=== PATIENT | male | born 1965 | race Caucasian/White ===

== ENCOUNTER 2017-01-22 06:19 | Day surgery (SDC) | payer BC ==
[2017-01-21 12:41] VITALS: BMI 34.7
--- NOTE | 2017-01-22 05:43 | HP ---
DATE OF ADMISSION: 01/22/2017 HISTORY OF PRESENT ILLNESS: This is a 52-year-old male with family history of colon cance r and also history of colon polyp. The patient had a very large, broad-based sessile villous adenom a removed one year ago. Because of broad-based sessile villous adenoma, he was advised to have repe at colonoscopy. The patient is having abdominal pain off and on with nausea. The pain is mild to m oderate over the epigastric area and right upper quadrant. The patient had an abdominal sonogram wh ich came back negative for any pathology. The patient comes for an EGD because of abdominal pain an d nausea and for a colonoscopy because of history of colon polyp. MEDICAL ILLNESSES: 1. Migraine. 2. Anxiety. 3. History of colon polyp. 4. Depression. 5. History of alcohol in moderate amount. ALLERGIES: None. PHYSICAL EXAMINATION: VITAL SIGNS: Pulse is 70, blood pressure 130/70. HEENT: Conjunctivae clear. CARDIOVASCULAR SYSTEM: First and second heart sounds normal. LUNGS: Clear to auscultation. ABDOMEN: Soft to touch. Abdomen is tender over the epigastric area and also right upper quadrant. There is no rebound or guarding. No masses. ADMITTING DIAGNOSES: 1. Abdominal pain and nausea. 2. Colon polyp. PLAN: EGD and colonoscopy.
[2017-01-22] MEDS ORDERED: Propofol 200 MG/20 ML VIAL ONE (08:20)
[2017-01-22] MEDS ORDERED: Lidocaine 1% PF 5 ML VIAL ONE (08:20)
--- NOTE | 2017-01-23 00:30 | OP ---
DATE OF PROCEDURE: 01/22/2017 OPERATIVE PROCEDURE: Esophagogastroduodenoscopy with biopsy. PREOPERATIVE DIAGNOSES: Abdominal pain and nausea. POSTOPERATIVE DIAGNOSES: 1. Esophagitis, distal esophagus and ulceration at the gastroesophageal junction with polypoid-appe aring mucosa. 2. A small gastric ulcer with erosions. PROCEDURE IN DETAIL: The patient was placed on his left lateral position and was given sedation by Anesthesia Department. A Pentax video gastroscope under direct vision was passed down the oropharyn x, past the gastroesophageal junction, into the stomach and subsequently into the descending duodenu m. The upper two-thirds of the esophageal mucosa appeared normal. Over the distal esophagus, the p atient had esophagitis and also at the GE junction, there is a polypoid-appearing mucosa with ulcera tion. It was biopsied. The fundus, cardia, and gastric body, no pathology seen. The gastric antru m shows an ulceration with some erosions. Biopsies were obtained from the gastric antrum and gastri c body. The duodenal bulb, descending duodenum, no pathology was seen. The stomach was decompresse d and the scope removed. DISCHARGE PLANNING: This is a 52-year-old male who came in for an EGD and a colonoscopy. He underwent EGD with biopsy. Colonoscopy, polypectomy x2. The patient did well post procedure an d is being discharged home. DISCHARGE INSTRUCTIONS: 1. Omeprazole 40 mg once a day. 2. The patient was advised to call me if he develops abdominal pain or hematochezia. 3. To come back to the clinic in 2 weeks.
--- NOTE | 2017-01-23 06:45 | OP ---
DATE OF SURGERY: 01/22/2017 OPERATIVE PROCEDURES: Colonoscopy with polypectomy, biopsy. PREOPERATIVE DIAGNOSES: A 52-year-old male with family history of colon cancer and person al history of colon polyps. The patient had a colonoscopy with polypectomy in 2016 and had removed 2 large broad-based sessile . He was brought back for repeat colonoscopy today because of thi s. POSTOPERATIVE DIAGNOSES: 1. Occasional diverticula over the ascending colon towards the cecal area. 2. Sessile transverse colon polyp, biopsied. 3. Sessile sigmoid polyps x2, status post polypectomy. 4. Small hemorrhoids. PROCEDURE NOTE: The patient was placed on his left lateral position and [facility] A rectal exam was done before the scope was advanced into the rectum. No lesions were felt on rectal exam. A Pentax video colonoscope was introduced into the rectum and advanced a ll the way into the cecum. The patient had a small amount of retained stool which was washed out. The appendiceal orifice, ileocecal valve, cecum, no pathology seen. There was an occasional diverti cula seen over the ascending colon area. The hepatic flexure, no pathology seen. The proximal tavarez sverse colon, no pathology seen. Over the distal transverse colon, the patient was found to have a sessile polyp. The polyp is very flat and probably measured approximately about 1.5 cm. The polyp was biopsied and removed as much as possible. The splenic flexure, descending colon, no pathology s een. The sigmoid colon had 2 sessile polyps. Both removed with cautery with good hemostasis. Retr oflexion of the scope in the rectum revealed hemorrhoids.
== END 2017-01-22 10:23 | disposition home or self-care (01) ==
LOC: SDC 06:19
PROVIDERS: ATTEND Internal Medicine Gastroenterology
DX: D12.3 Benign neoplasm of transverse colon (principal); D12.5 Benign neoplasm of sigmoid colon; K21.0 Gastro-esophageal reflux disease with esophagitis; K29.50 Unspecified chronic gastritis without bleeding; K57.30 Diverticulosis of large intestine without perforation or abscess without bleeding; G43.909 Migraine, unspecified, not intractable, without status migrainosus; F41.9 Anxiety disorder, unspecified; F32.9 Major depressive disorder, single episode, unspecified; Z86.010 Personal history of colon polyps; Z80.0 Family history of malignant neoplasm of digestive organs
CPT/HCPCS: 88305; 88312; 88313; J2001; J2704

== ENCOUNTER 2017-02-03 08:33 | Outpatient (CLI) | payer BC ==
[2017-02-03] MEDS ORDERED: Iopamidol 370 76% 100 ML VIAL ONE ×2 (09:00)
--- NOTE | 2017-02-03 11:39 | CT ---
CT ABDOMEN WITH AND WITHOUT CONTRAST: HISTORY: Ultrasound exam of 01/20/2017 revealed an abnormal prominence off the superior pole of the left kidn ey. A mass lesion was questioned. This exam is performed and was recommended from that study. Gaurang t study was reviewed. TECHNIQUE: Multiple axial tomograms obtained through the abdomen both pre and post IV contrast. FINDINGS: No evidence of renal mass identified on this exam. The renal cortex shows homogeneous enhancement. There is a tiny cyst off the lateral aspect of the right kidney, measuring approximately 1 cm. No hydronephrosis. No evidence of urinary tract calcification. The lung base is clear. The liver shows a 2 cm cystic lesion in the superior left lobe, along the l iver margin. Mild fatty infiltration of the liver. The spleen and pancreas are unremarkable. The adrenal glands appear normal. The aorta has a normal caliber. The bowel loops are unremarkable. T he appendix is partially visualized and appears unremarkable. IMPRESSION: 1. Small hepatic cyst, left lobe of liver. 2. Small renal cyst, right kidney. 3. No left renal mass identified. POS: ELENA
== END 2017-02-03 08:34 | disposition home or self-care (01) ==
LOC: SCSCT 08:33
PROVIDERS: ATTEND Internal Medicine Gastroenterology
DX: R93.8 Abnormal findings on diagnostic imaging of other specified body structures (principal); N28.1 Cyst of kidney, acquired; K76.89 Other specified diseases of liver
CPT/HCPCS: 74170

== ENCOUNTER 2017-03-03 20:00 | Outpatient (CLI) | payer BC | END 2017-03-03 20:01 | disposition home or self-care (01) | LOC: SLEEPLAB 20:00 | PROVIDERS: ATTEND Family Medicine | DX: G47.33 Obstructive sleep apnea (adult) (pediatric) (principal); R06.83 Snoring | CPT/HCPCS: 95806 ==

== ENCOUNTER 2017-04-16 19:30 | Outpatient (CLI) | payer BC | END 2017-04-16 19:31 | disposition home or self-care (01) | LOC: SLEEPLAB 19:30 | PROVIDERS: ATTEND Family Medicine | DX: G47.33 Obstructive sleep apnea (adult) (pediatric) (principal); G47.00 Insomnia, unspecified; R06.83 Snoring | CPT/HCPCS: 95811 ==

== ENCOUNTER 2018-01-27 06:42 | Day surgery (SDC) | payer OTHER ==
[2018-01-26 14:12] VITALS: BMI 34.7
--- NOTE | 2018-01-26 23:29 | HP ---
DATE OF ADMISSION: 01/27/2018 SHORT-STAY HISTORY AND PHYSICAL HISTORY OF PRESENT ILLNESS: This is a 53-year-old male, who comes for colonoscopy for colo n cancer screening. The patient also has history of chronic acid reflux and symptoms were controlled until few months ago. The symptoms have been flaring up recently in spite taking adequate medical t herapy. The patient comes for a colonoscopy for cancer screening and for EGD for acid reflux. MEDICAL ILLNESSES: 1. Chronic acid reflux. 2. Sleep apnea. 3. Anxiety. 4. Migraine. ALLERGIES: None. PHYSICAL EXAMINATION: VITAL SIGNS: Pulse is 70, blood pressure 140/80. HEENT: Conjunctivae clear. CARDIOVASCULAR: First and second heart sounds normal. LUNGS: Clear to auscultation. ABDOMEN: Soft. No organomegaly. No tenderness. No masses. ADMITTING DIAGNOSES: 1. Colon cancer screening. 2. Chronic acid reflux. PLAN: Colonoscopy and EGD.
--- NOTE | 2018-01-27 11:06 | OP ---
DATE OF PROCEDURE 01/27/2018 SURGEON: Christiano Be M.D. OPERATIVE PROCEDURE: 1. Colonoscopy with polypectomy. 2. Colonoscopy with tattooing of lesion in the transverse colon. PREOPERATIVE PROCEDURE: 1. Colon polyp with removal of a large sessile broad-based villous adenoma one year ago. 2. He also has a family history of colon cancer. 3. The polyp could not be removed completely last year. The patient was to come back for a colonoscopy. POSTOPERATIVE DIAGNOSES: 1. Sessile polyp cecum, status post snare cautery with good hemostasis. 2. Mild scattered diverticulosis of the left colon. 3. Large broad based sessile polyp occupying almost 2.5 of the mucosal folds. PROCEDURE IN DETAIL: The patient was placed on his left lateral position and was given sedation by Anesthesia Department. A rectal exam was done before the scope was advanced into the rectum. No lesion felt on rectal exam. A Pentax video colonoscope was introduced in the rectum and advanced all the way into the cecum. The ileocecal area, appendical opening, no pathology seen. Over the cecum just above the ileocecal valve the patient found to have a sessile polyp. This was removed with snare cautery without difficulty. The ascending colon, hepatic flexure, proximal transverse colon, no pathology seen. The patient had a large broad based sessile polyp occupying almost 2.5-3 times of the mucosal fold. The polyp was located, it was difficult to get in a good position. When they try to get the polyp to come into view at 6 o'clock and the scope pulled back into the descending colon. The scope was advanced multiple times back and forth. In spite of changing positions, it was very difficult to get a good position for a polypectomy. I was able to finally get most of the polyp for a polypectomy with snare removal. Post-polypectomy, no bleeding seen. I elected to tattoo the lesion with 3 mL of solution. The polyp ____. RECOMMENDATION: 1. Await biopsy report 2. Consider a segmental resection of the colon versus referral to another insole rasper for possible attempt to remove it, but based on the lesion I believe he should probably undergo surgery. VANDANA
[2018-01-27] MEDS ORDERED: PROPOFOL 200 MG/20 ML VIAL ONE (11:40)
== END 2018-01-27 10:44 | disposition home or self-care (01) ==
LOC: SDC 06:42
PROVIDERS: ATTEND Internal Medicine Gastroenterology
PROC: 0DBL8ZX Excision of Transverse Colon, Via Natural or Artificial Opening Endoscopic, Diagnostic (ICD-10-PCS; principal; 2018-01-27)
PROC: 3E0H8GC Introduction of Other Therapeutic Substance into Lower GI, Via Natural or Artificial Opening Endoscopic (ICD-10-PCS; principal; 2018-01-27)
PROC: 0DBH8ZX Excision of Cecum, Via Natural or Artificial Opening Endoscopic, Diagnostic (ICD-10-PCS; principal; 2018-01-27)
DX: Z09 Encounter for follow-up examination after completed treatment for conditions other than malignant neoplasm (principal); D12.0 Benign neoplasm of cecum; D12.3 Benign neoplasm of transverse colon; K57.30 Diverticulosis of large intestine without perforation or abscess without bleeding; K21.9 Gastro-esophageal reflux disease without esophagitis; G47.30 Sleep apnea, unspecified; F41.9 Anxiety disorder, unspecified; G43.909 Migraine, unspecified, not intractable, without status migrainosus; Z86.010 Personal history of colon polyps; Z79.899 Other long term (current) drug therapy; Z80.0 Family history of malignant neoplasm of digestive organs
CPT/HCPCS: 88305; J2704

== ENCOUNTER 2018-02-10 16:25 | Outpatient (CLI) | payer OTHER ==
[2018-02-10 17:12] LABS: #Eosinphils 0.2 thou/uL (0.0-0.7); #Lymphocytes 1.4 thou/uL (1.20-3.40); #Monocytes 0.5 thou/uL (0.11-0.59); #Neutrophils 3.8 thou/uL (1.40-6.50); %Basophils 0.8 % (0.0-1.0); %Eosinophils 3.3 % (0.0-10.0); %Lymphocytes 22.8 % (21.0-51.0); %Monocytes 8.2 % (0.0-10.0); %Neutrophils 64.9 % (42.0-75.0); Hemoglobin 14.7 g/dL (14.0-18.0); Mean Corpuscular HGB CONC 33.6 g/dL (32.0-36.0); Mean Corpuscular Hemoglobin 32.4 pg (27.0-31.0); Mean Corpuscular Volume 96.5 fL (78.0-98.0); Mean Platelet Volume 5.6 fL (7.4-10.4); Platelet Count 283 thou/uL (130-400); Red Blood Cell (RBC) Count 4.54 mill/uL (4.70-6.10); White Blood Cell (WBC) Count 5.9 thou/uL (4.8-10.8)
[2018-02-10 17:19] LABS: Hemoglobin A1c 5.5 % (4.0-6.0)
[2018-02-10 17:34] LABS: Anion Gap 13 mmol/L (10-20); BUN (Urea Nitrogen) 14 mg/dL (8.4-25.7); Calc. Creatinine Clearance 0 mL/min (70-130); Calcium 9.4 mg/dL (7.8-10.44); Carbon Dioxide 23 mmol/L (22-29); Chloride 104 mmol/L (98-107); Estimated GFR-MDRD Greater than 90; Glucose 102 mg/dL (70-105); Potassium 4.2 mmol/L (3.5-5.1); Sodium 136 mmol/L (136-145)
== END 2018-02-10 16:26 | disposition home or self-care (01) ==
LOC: LABBT 16:25
PROVIDERS: ATTEND Surgery
DX: Z01.812 Encounter for preprocedural laboratory examination (principal); K63.5 Polyp of colon
CPT/HCPCS: 80048; 83036; 85025; 93005; 93010

== ENCOUNTER 2018-02-10 16:30 | Inpatient (IN) | payer OTHER ==
[2018-02-18] MEDS ORDERED: cefOXitin 2 GM VIAL ONE (11:20)
[2018-02-18] MEDS ORDERED: Sodium Chloride 0.9% 100 ML ONE (11:20)
[2018-02-18] MEDS ORDERED: Midazolam HCl 2 mg/2 ml Vial ONE ×2 (11:43→12:17)
[2018-02-18] MEDS ORDERED: Lidocaine 1% (PF) 30 ML VIAL ONE (11:44)
[2018-02-18] MEDS ORDERED: Fentanyl 100 MCG/2 ML VIAL ONE ×5 (11:44→15:45)
[2018-02-18] MEDS ORDERED: Dexamethasone 4 mg/ml Vial ONE (11:44)
[2018-02-18] MEDS ORDERED: Promethazine HCl 25 MG/ML VIAL SLOW IVP PRN (15:37)
[2018-02-18] MEDS ORDERED: Ketorolac Tromethamine 30 MG/ML VIAL IVP PRN ×2 (15:37→17:21)
[2018-02-18] MEDS ORDERED: Meperidine HCl/PF 25 MG/ML VIAL SLOW IVP PRN (15:37)
[2018-02-18] MEDS ORDERED: HYDROmorphone 2 MG/ML VIAL SLOW IVP PRN (15:37)
[2018-02-18] MEDS ORDERED: Ondansetron HCl/PF 4 MG/2 ML Vial IVP PRN (15:37)
[2018-02-18] MEDS ORDERED: Promethazine HCl 25 MG/ML VIAL IM PRN ×2 (15:37→17:21)
[2018-02-18] MEDS ORDERED: Ketorolac Tromethamine 30 MG/ML VIAL ONE (15:51)
[2018-02-18] MEDS ORDERED: HYDROmorphone 2 MG/ML VIAL ONE (16:04)
[2018-02-18] MEDS ORDERED: D5 1/2 NS w/20 mEq KCL 1,000 ML ONE (17:03)
[2018-02-18] MEDS ORDERED: Bupivacaine HCl 0.5%/Epinephrine 1:200,000/PF 30 ml Vial ONE (17:18)
[2018-02-18] MEDS ORDERED: Ondansetron PF 4 MG/2 ML Vial IVP PRN (17:21)
[2018-02-18] MEDS ORDERED: hydrALAZINE 20 MG/ML VIAL SLOW IVP PRN (17:21)
[2018-02-18] MEDS ORDERED: Metoclopramide HCl 10 MG/2 ML VIAL ONE (17:25)
[2018-02-18] MEDS ORDERED: Lidocaine 1% PF 5 ML VIAL ONE (17:25)
[2018-02-18] MEDS ORDERED: Ondansetron PF 4 MG/2 ML Vial ONE (17:25)
[2018-02-18] MEDS ORDERED: Glycopyrrolate 0.2 MG/ML 5 ML SYRINGE ONE (17:25)
[2018-02-18] MEDS ORDERED: Dexamethasone 20 MG/5 ML VIAL ONE (17:25)
[2018-02-18] MEDS ORDERED: PROPOFOL 200 MG/20 ML VIAL ONE (17:25)
[2018-02-18 17:28] VITALS: BMI 33.6
[2018-02-18] MEDS: Acetaminophen 1,000 MG in Premix Bag 1 BAG IVPB SCH ×2 (18:14→23:19)
[2018-02-18] MEDS: D5 1/2 NS w/20 mEq KCL 1,000 ML IV SCH (18:17)
[2018-02-18] MEDS: Fentanyl 100 MCG/2 ML VIAL SLOW IVP PRN ×3 (18:27→23:22)
[2018-02-18] MEDS: cefOXitin 2 GM in Sodium Chloride 0.9% 100 ML IVPB SCH (19:58)
[2018-02-18] MEDS: Famotidine 20 MG TAB PO SCH (20:02)
[2018-02-18] MEDS: Amitriptyline HCl 100 MG TAB PO SCH (20:02)
[2018-02-18] MEDS: Famotidine/PF 20 mg/2ml Vial SLOW IVP SCH (20:02)
[2018-02-18] MEDS: ALPRAZolam 1 MG TAB PO PRN (22:30)
[2018-02-19] MEDS: D5 1/2 NS w/20 mEq KCL 1,000 ML IV SCH ×2 (02:41→18:51)
[2018-02-19] MEDS: cefOXitin 2 GM in Sodium Chloride 0.9% 100 ML IVPB SCH (03:32)
[2018-02-19] MEDS: Acetaminophen 1,000 MG in Premix Bag 1 BAG IVPB SCH ×2 (05:06→11:48)
[2018-02-19 05:31] LABS: #Lymphocytes 0.9 thou/uL (1.20-3.40); #Monocytes 1.1 thou/uL (0.11-0.59); #Neutrophils 8.4 thou/uL (1.40-6.50); %Basophils 0.2 % (0.0-1.0); %Eosinophils 0.1 % (0.0-10.0); %Lymphocytes 8.9 % (21.0-51.0); %Monocytes 10.7 % (0.0-10.0); %Neutrophils 80.1 % (42.0-75.0); Hemoglobin 12.2 g/dL (14.0-18.0); Mean Corpuscular HGB CONC 33.2 g/dL (32.0-36.0); Mean Corpuscular Hemoglobin 32.4 pg (27.0-31.0); Mean Corpuscular Volume 97.7 fL (78.0-98.0); Platelet Count 244 thou/uL (130-400); RBC Distribution Width 12.4 % (11.5-14.5); Red Blood Cell (RBC) Count 3.75 mill/uL (4.70-6.10); White Blood Cell (WBC) Count 10.4 thou/uL (4.8-10.8)
[2018-02-19 05:41] LABS: Anion Gap 13 mmol/L (10-20); BUN (Urea Nitrogen) 14 mg/dL (8.4-25.7); Calc. Creatinine Clearance 128 mL/min (70-130); Calcium 8.5 mg/dL (7.8-10.44); Carbon Dioxide 23 mmol/L (22-29); Chloride 103 mmol/L (98-107); Estimated GFR-MDRD 73; Glucose 144 mg/dL (70-105); Potassium 4.2 mmol/L (3.5-5.1); Sodium 135 mmol/L (136-145)
[2018-02-19] MEDS: Fentanyl 100 MCG/2 ML VIAL SLOW IVP PRN ×4 (06:18→19:34)
[2018-02-19] MEDS: Famotidine 20 MG TAB PO SCH ×2 (07:51→21:02)
[2018-02-19] MEDS: Losartan 25 MG TAB PO SCH (07:52)
[2018-02-19] MEDS: Enoxaparin Sodium 40 MG/0.4 ML SYRINGE SC SCH (09:26)
[2018-02-19] MEDS: Famotidine/PF 20 mg/2ml Vial SLOW IVP SCH ×2 (09:31→21:02)
[2018-02-19] MEDS ORDERED: traMADol HCl 50 MG TAB PO PRN (11:02)
--- NOTE | 2018-02-19 11:34 | PRG ---
DATE OF SERVICE: 02/19/2018 Mr. Javier is doing well. He is tolerating clear liquids. He is ambulating regularly. He has alrea dy urinated his catheters out. PHYSICAL EXAMINATION: VITAL SIGNS: His blood pressure 150/78, pulse 90, respirations 14. He is afebrile. ABDOMEN: Soft. His wound is healing well. He is minimally distended, appropriately tender. LABORATORY: Hemoglobin 12. White blood cell count 10, creatinine 1.07. ASSESSMENT: Postop day #1, extended right colectomy. PLAN: Full liquids. Likely home tomorrow.
[2018-02-19] MEDS: HYDROcodone/Acetaminophen 7.5/325 mg Tablet PO PRN ×2 (15:23→21:01)
[2018-02-19] MEDS: ALPRAZolam 1 MG TAB PO PRN (21:02)
[2018-02-19] MEDS: Amitriptyline HCl 100 MG TAB PO SCH (21:02)
[2018-02-20] MEDS: Fentanyl 100 MCG/2 ML VIAL SLOW IVP PRN (02:57)
[2018-02-20] MEDS: HYDROcodone/Acetaminophen 7.5/325 mg Tablet PO PRN ×3 (06:37→15:53)
[2018-02-20] MEDS: Famotidine 20 MG TAB PO SCH (08:20)
[2018-02-20] MEDS: Losartan 25 MG TAB PO SCH (08:20)
[2018-02-20] MEDS: Enoxaparin Sodium 40 MG/0.4 ML SYRINGE SC SCH (08:52)
[2018-02-20] MEDS: Famotidine/PF 20 mg/2ml Vial SLOW IVP SCH (12:13)
[2018-02-20 16:05] VITALS: BP 132/86; TEMP 98.5
--- NOTE | 2018-03-26 02:37 | OP ---
DATE OF PROCEDURE: 02/18/2018 PREOPERATIVE DIAGNOSIS: Unresectable colon polyp. POSTOPERATIVE DIAGNOSIS: Unresectable colon polyp. PROCEDURE PERFORMED: Laparoscopic hand-assisted right hemicolectomy. ANESTHESIA: General. BLOOD LOSS: Minimal. COMPLICATION: None. SPECIMEN: Right colon. DESCRIPTION OF PROCEDURE: The patient was taken to the operating room and laid supine on the operating room table. After general anesthetic was obtained, the Tejada catheter was placed. The abdomen was shaved, prepped, and draped in a sterile fashion. Left subcostal 5 mm Optiview trocar was placed and high-flow pneumoperitoneum was obtained. A suprapubic 5 mm port and a left abdominal 5 mm port were placed under direct visualization. Hand-assist port was placed above the umbilicus using a 5 cm vertical incision. The white line of Toldt was mobilized in the right colon. The right ureter was found excluded from the dissection. Hepatic flexure was mobilized. The peritoneum was incised on the medial aspect of the ascending colon, and the colon was fully mobilized. The top of the hand-assist port was removed, and the right colon and transverse colon brought up into the wound. TERI-75 stapler was fired across the terminal ileum. A reload was fired across just distal to the blue-dyed colon. The small bowel and colon mesentery were taken using the Lashay clamps and silk ties. The specimen was opened on the back table to reveal no significant polyp. There was the area of blue tattoo. There was what looked like a previous attempted polypectomy and a little invaginated area of the colon near the blue dye. There were no other blue areas in the colon. A [id number] isoperistaltic anastomosis was performed using TERI-75 stapler. The common enterotomy was closed using Vicryl suture. The mesenteric defect was closed using Vicryl suture and a stitch was placed. There was no bleeding in the abdomen. No injury to any intraabdominal structures. All ports were removed under direct visualization without bleeding. PDS was used to close the fascial defect at the hand-assist port. All incisions were irrigated and closed using 4-0 Monocryl and Dermabond. The patient was sent over to Recovery in stable condition. All instrument counts, needle counts, and lap counts were correct. Job ID: [id number]
--- NOTE | 2018-03-26 19:39 | DIS ---
DATE OF ADMISSION: 02/18/2018 DATE OF DISCHARGE: 02/20/2018 ADMITTING DIAGNOSIS: Colon polyp, unresectable. DISCHARGE DIAGNOSIS: Colon polyp, unresectable. PROCEDURES: Laparoscopic hand-assisted right colectomy by Lala without complication. CONDITION AT DISCHARGE: Improved. STAFF: Lala. HOSPITAL COURSE: On postop day 2, the patient is doing well. He is tolerating liquid diet. He is discharged to home. He will follow up with me in 2 weeks. Pathology pending at that time of discharge. Job ID: [id number]
== END 2018-02-20 17:40 | disposition home or self-care (01) | DRG 331 ==
LOC: SURG A 02-18 10:45 → SJJU 02-18 17:25
PROVIDERS: ADMIT Surgery; ATTEND Surgery
PROC: 0DTF4ZZ Resection of Right Large Intestine, Percutaneous Endoscopic Approach (ICD-10-PCS; principal; 2018-02-18)
DX: K63.5 Polyp of colon (principal); I10 Essential (primary) hypertension; Z80.0 Family history of malignant neoplasm of digestive organs
CPT/HCPCS: 36415; 36416; 80048; 85025; 88307; J0131; J0670; J0694; J1100; J1170; J1650; J1885; J2001; J2250; J2405; J2704; J2765; J3010; J7050

== ENCOUNTER 2019-04-12 08:16 | Outpatient (CLI) | payer OTHER ==
--- NOTE | 2019-04-12 08:54 | CT ---
Exam: Abdomen CT without contrast Pelvic CT without contrast HISTORY: Hematuria. Left flank pain. History of colon cancer COMPARISON: 02/03/2017 FINDINGS: Abdomen CT: Lung bases:No masses or consolidation Heart size: Normal heart size. No significant pericardial fluid Aorta: Visualized aorta has a normal caliber. No periaortic fat stranding. Solid organs: Limited evaluation by the lack of intravenous contrast. Grossly no solid organ abnormal ity. There is mild hepatomegaly. Diffuse hypoattenuation of liver due to hepatic steatosis. Lymph nodes: No gastrohepatic, retrocrural or periportal lymphadenopathy Gallbladder: Unremarkable Mesentery: No mass, lymphadenopathy, free air or free fluid Kidneys: Bilaterally, no hydronephrosis, nephrolithiasis or perinephric fat stranding. Bilateral uret ers have a normal caliber. No hydroureter, periureteral fat stranding or ureterolithiasis. 1.4 x 0.9 cm cyst in the mid pole right kidney. Alimentary canal: Limited evaluation by the lack of oral contrast. There is evidence of previous charity atric change. No bowel obstruction. Unremarkable ileocecal junction. Scattered fecal material in a nondistended, nondilated colon. Diverticulosis, without evidence of diverticulitis. Anterior abdominal wall: Small ventral abdominal wall hernias containing mesenteric fat. No bowel her niation. CT PELVIS: No mass, adenopathy, free air or free fluid. Urinary bladder: Unremarkable. Osseous structures: No lytic or blastic lesions IMPRESSION: 1. No evidence of obstructive uropathy 2. Hepatomegaly and hepatic steatosis. 3. Exophytic hypodensity in the mid right renal cortex compatible with a 1.4 x 0.9 cm cyst. Attenuati on coefficient is -11 Hounsfield units. No significant change from the previous examination.
== END 2019-04-12 08:17 | disposition home or self-care (01) ==
LOC: SCSCT 08:16
PROVIDERS: ATTEND Family Medicine
DX: R31.9 Hematuria, unspecified (principal); R16.0 Hepatomegaly, not elsewhere classified; K76.0 Fatty (change of) liver, not elsewhere classified
CPT/HCPCS: 74176

== ENCOUNTER 2021-05-11 10:33 | Outpatient (CLI) | payer BC ==
[2021-05-11 15:35] LABS: ALT (SGPT) 99 U/L (8-55); AST (SGOT) 74 U/L (5-34); Albumin 4.9 g/dL (3.5-5.0); Alkaline Phosphatase 132 U/L (40-110); Anion Gap 17 mmol/L (10-20); BUN (Urea Nitrogen) 11 mg/dL (8.4-25.7); Bilirubin, Total 0.8 mg/dL (0.2-1.2); Calc. Creatinine Clearance 0 mL/min (70-130); Calcium 9.9 mg/dL (7.8-10.44); Carbon Dioxide 23 mmol/L (22-29); Chloride 102 mmol/L (98-107); Globulin 3.3 g/dL (2.4-3.5); Glucose 275 mg/dL (70-105); Potassium 4.7 mmol/L (3.5-5.1); Protein, Total 8.2 g/dL (6.0-8.3); Sodium 137 mmol/L (136-145)
== END 2021-05-11 10:34 | disposition home or self-care (01) ==
LOC: SCSRAD 10:33
PROVIDERS: ATTEND Family Medicine
DX: M25.532 Pain in left wrist (principal); E11.9 Type 2 diabetes mellitus without complications
CPT/HCPCS: 36415; 80053

== ENCOUNTER 2024-03-24 08:47 | Outpatient (CLI) | payer BC ==
[2024-03-24 10:27] LABS: #Basophils 0.04 10x3/uL (0.0-0.2); %Basophils 0.6 % (0.0-1.0); %Eosinophils 3.8 % (0.0-10.0); %Lymphocytes 19.4 % (21.0-51.0); %Monocytes 10.6 % (0.0-10.0); %Neutrophils 65.1 % (42.0-75.0); Hematocrit 40.3 % (42.0-52.0); Hemoglobin 13.8 g/dL (14.0-18.0); Mean Corpuscular HGB CONC 34.2 g/dL (32.0-36.0); Mean Corpuscular Hemoglobin 31.3 pg (27.0-31.0); Mean Corpuscular Volume 91.4 fL (78.0-98.0); Mean Platelet Volume 8.8 fL (7.4-10.4); Platelet Count 243 10x3/uL (130-400); RBC Distribution Width 13.2 % (11.5-14.5); Red Blood Cell (RBC) Count 4.41 mill/uL (4.70-6.10)
[2024-03-24 10:39] LABS: Anion Gap 15 mmol/L (10-20); BUN (Urea Nitrogen) 11 mg/dL (8.4-25.7); Calc. Creatinine Clearance 0 mL/min (70-130); Carbon Dioxide 22 mmol/L (22-29); Chloride 107 mmol/L (98-107); Estimated GFR 100; Glucose 146 mg/dL (70-105); Potassium 4.2 mmol/L (3.5-5.1); Sodium 140 mmol/L (136-145)
[2024-03-24 10:53] LABS: Prothrombin Time 13.2 sec (12.0-14.7)
[2024-03-24 15:50] LABS: Bilirubin Negative (Negative); Blood, Urine Negative (Negative); Clarity Clear (Clear); Glucose, Urine (Dipstick) Normal (Negative); Ketone, Urine Negative (Negative); Leukocyte Negative Leu/uL (Negative); Nitrite Negative (Negative); Protein, Urine (Dipstick) 20 mg/dL (Neg-Trace); Specific Gravity, Urine 1.019 (1.002-1.036); Urobilinogen Normal mg/dL (Less than 2); pH, Urine 5.5 (5.0-9.0)
== END 2024-03-24 08:48 | disposition home or self-care (01) ==
LOC: LABBT 08:47
PROVIDERS: ATTEND Orthopaedic Surgery
DX: Z01.818 Encounter for other preprocedural examination (principal); M17.12 Unilateral primary osteoarthritis, left knee; R59.0 Localized enlarged lymph nodes
CPT/HCPCS: 71046; 80048; 81003; 85025; 85610; 87081

== ENCOUNTER 2024-03-24 09:41 | Outpatient (CLI) | payer BC | END 2024-03-24 09:42 | disposition home or self-care (01) | LOC: CT 09:41 | PROVIDERS: ATTEND Orthopaedic Surgery | DX: M17.12 Unilateral primary osteoarthritis, left knee (principal) | CPT/HCPCS: 71046; 80048; 81003; 85025; 85610; 87081 ==

== ENCOUNTER 2024-03-29 06:34 | Observation (INO) | payer BC ==
[~2024-03-29 06:34] MED LIST: Sodium Chloride 0.9% 100 ML ONE; Tranexamic Acid 1,000 MG/10 ML VIAL ONE; Vancomycin (BATCH) 1.5 GM/300 ML BAG ONE
[2024-03-29] MEDS ORDERED: fentaNYL 50 mcg/mL 1 mL Vial ONE (06:37)
[2024-03-29] MEDS ORDERED: EPINEPHrine 1 MG/ML VIAL ONE (06:37)
[2024-03-29] MEDS ORDERED: Bupivacaine PF 0.5% 30 ML VIAL ONE ×2 (06:38→06:54)
[2024-03-29] MEDS ORDERED: Lidocaine 1% (PF) 30 ML VIAL ONE (06:38)
[2024-03-29] MEDS ORDERED: Midazolam HCl 2 mg/2 ml Vial ONE (06:38)
[2024-03-29] MEDS ORDERED: CEFAZOLIN 2 GM VIAL ONE (06:54)
[2024-03-29] MEDS ORDERED: Lidocaine 2% PF 5 ML VIAL ONE (07:03)
[2024-03-29] MEDS ORDERED: PROPOFOL 20 ML ONE ×2 (07:03→07:36)
[2024-03-29] MEDS ORDERED: Ondansetron PF 4 MG/2 ML Vial IVP PRN ×2 (07:15→09:15)
[2024-03-29] MEDS ORDERED: Promethazine HCl 25 MG/ML VIAL IM PRN ×2 (07:15→09:15)
[2024-03-29] MEDS ORDERED: fentaNYL 50 mcg/mL 1 mL Vial SLOW IVP PRN (07:15)
[2024-03-29] MEDS ORDERED: Ropivacaine 0.2% 550 ML 550 ML NERVE BLCK SCH (07:15)
[2024-03-29] MEDS ORDERED: HYDROcodone/Acetaminophen 10/325 mg Tablet PO PRN (07:15)
[2024-03-29] MEDS ORDERED: traMADol HCl 50 MG TAB PO PRN ×2 (07:15)
[2024-03-29] MEDS ORDERED: fentaNYL PF 100 MCG/2 ML SYRINGE ONE ×2 (07:45→09:02)
[2024-03-29] MEDS ORDERED: Dexamethasone 20 MG/5 ML VIAL ONE (07:50)
[2024-03-29] MEDS ORDERED: Ketorolac Tromethamine 30 MG (1 mL) VIAL ONE (07:50)
[2024-03-29] MEDS ORDERED: Ondansetron PF 4 MG/2 ML Vial ONE (07:50)
[2024-03-29] MEDS ORDERED: ePHEDrine Sulfate 50 MG/10 ML VIAL ONE (08:05)
[2024-03-29] MEDS ORDERED: Tranexamic Acid 1,000 MG in Sodium Chloride 0.9% 100 ML IVPB SCH (09:15)
[2024-03-29] MEDS ORDERED: diphenhydrAMINE 25 MG CAP PO PRN (09:15)
[2024-03-29] MEDS ORDERED: Acetaminophen 325 MG TAB PO PRN (09:15)
[2024-03-29] MEDS ORDERED: HYDROmorphone 0.5 MG/0.5 ML SYRINGE ONE ×2 (09:21→09:45)
[2024-03-29] MEDS ORDERED: Tranexamic Acid 1,000 MG/10 ML VIAL ONE (09:45)
[2024-03-29 13:02] VITALS: BMI 35.2
[2024-03-29] MEDS: Ketorolac Tromethamine 30 MG (1 mL) VIAL IVP SCH ×2 (14:11→14:21)
[2024-03-29] MEDS: CEFAZOLIN 2 GM in Sodium Chloride 0.9% 100 ML IVPB SCH (14:22)
[2024-03-29] MEDS: Sodium Chloride 0.9% 1,000 ML IV SCH (14:22)
[2024-03-29] MEDS: HYDROcodone/Acetaminophen 10/325 mg Tablet PO PRN (18:42)
[2024-03-29] MEDS: Mirtazapine 30 MG TAB PO SCH (20:44)
[2024-03-29] MEDS: Aspirin 81 mg Enteric Coated Tablet PO SCH (20:44)
[2024-03-29] MEDS: Rosuvastatin 5 MG TAB PO SCH (20:44)
[2024-03-29] MEDS: Vancomycin (BATCH) 1.5 GM in Premix 1 BAG IVPB SCH (20:45)
[2024-03-30 05:37] LABS: Hematocrit 32.3 % (42.0-52.0); Hemoglobin 10.6 g/dL (14.0-18.0); Mean Corpuscular HGB CONC 32.8 g/dL (32.0-36.0); Mean Corpuscular Hemoglobin 30.5 pg (27.0-31.0); Mean Corpuscular Volume 92.8 fL (78.0-98.0); Mean Platelet Volume 8.9 fL (7.4-10.4); Platelet Count 198 10x3/uL (130-400); RBC Distribution Width 13.3 % (11.5-14.5); Red Blood Cell (RBC) Count 3.48 mill/uL (4.70-6.10)
[2024-03-30 06:59] VITALS: BMI 35.2
[2024-03-30] MEDS ORDERED: ALPRAZolam 0.25 MG TAB PO PRN (07:24)
[2024-03-30 07:52] VITALS: TEMP 98.3
[2024-03-30] MEDS: Ferrous Gluconate 324 MG TAB PO SCH (09:43)
[2024-03-30] MEDS: Multivitamin W/ Minerals 1 TAB PO SCH (09:43)
[2024-03-30] MEDS: Losartan 25 MG TAB PO SCH (09:43)
[2024-03-30] MEDS: Sertraline 25 MG TAB PO SCH (09:43)
[2024-03-30] MEDS: Senokot S 8.6-50 MG TAB PO SCH (09:44)
[2024-03-30 11:39] VITALS: BP 130/77
== END 2024-03-30 14:44 | disposition home or self-care (01) ==
LOC: SDC 06:34 → SURG A 11:23 → SDC 13:10
PROVIDERS: ADMIT Orthopaedic Surgery; ATTEND Orthopaedic Surgery
PROC: 0SRD0JZ Replacement of Left Knee Joint with Synthetic Substitute, Open Approach (ICD-10-PCS; principal; 2024-03-29)
PROC: 3E0T3BZ Introduction of Anesthetic Agent into Peripheral Nerves and Plexi, Percutaneous Approach (ICD-10-PCS; 2024-03-29)
DX: M17.12 Unilateral primary osteoarthritis, left knee (principal); I10 Essential (primary) hypertension; E78.5 Hyperlipidemia, unspecified; F32.A Depression, unspecified; F41.9 Anxiety disorder, unspecified; Z90.49 Acquired absence of other specified parts of digestive tract; Z88.8 Allergy status to other drugs, medicaments and biological substances; Z79.84 Long term (current) use of oral hypoglycemic drugs; Z79.899 Other long term (current) drug therapy
CPT/HCPCS: 0055T; 27447; 64448; 36415; 36416; 85027; A4306; C1713; C1776; C1889; J0171; J0665; J1100; J1885; J2250; J2405; J2704; J2795; J3010; J3370